=== PATIENT | female | born 1975 | race Caucasian/White ===

== ENCOUNTER 2017-05-21 14:26 | Inpatient (IN) | payer MEDICAID ==
[~2017-05-21] VITALS: Ht 154.9 cm; Wt 63.8 kg
[~2017-05-21 14:26] MED LIST: VIC PO
[2017-05-21 15:21] LABS: BASOPHIL % 0.4 % (0-2); PLATELET COUNT 270 x10^3mcL (130-400); RED CELL DISTRIBUTION WIDTH 13.8 % (11.5-14.5)
[2017-05-21 15:24] LABS: CALCIUM 8.6 mg/dL (8.5-10.1); CARBON DIOXIDE 27.9 mmol/L (21-32); CHLORIDE SERUM 103 mmol/L (98-107); CREATININE SERUM 0.6 mg/dL (0.6-1.0); GFR1 > 60 mL/min; GLUCOSE SERUM 116 mg/dL (74-106); POTASSIUM SERUM 4.1 mmol/L (3.5-5.1); SODIUM SERUM 138 mmol/L (136-145)
[2017-05-21 15:28] LABS: ALBUMIN 3.4 g/dL (3.4-5.0); ALKALINE PHOSPHATASE 78 U/L (46-116); ALT/SGPT 20 U/L (14-59); AMYLASE 91 U/L (25-115); AST/SGOT 12 U/L (15-37); BILIRUBIN TOTAL 0.1 mg/dL (0.20-1.00); LIPASE 146 IU/L (73-393); TOTAL PROTEIN, SERUM 7.3 g/dL (6.4-8.2)
[2017-05-21 20:00] VITALS: BP 112/52
[2017-05-21 20:02] VITALS: Ht 154.9 cm; Wt 63.8 kg
[2017-05-21 20:28] LABS: MAGNESIUM 1.8 mg/dL (1.8-2.4); PHOSPHOROUS 2.6 mg/dL (2.5-4.9)
[2017-05-21 20:39] LABS: T3 TOTAL 1.14 ng/mL
[2017-05-21 20:58] LABS: FREE T4 1.02 ng/dL (0.76-1.46); FREE THYROXINE INDEX 2.9 ug/dL (1.4-4.5); T4(THYROXINE) 8.2 ug/dL (4.7-13.3)
[2017-05-22 05:52] VITALS: BP 97/42
[2017-05-22 07:14] LABS: BASOPHIL % 0.6 % (0-2); PLATELET COUNT 240 x10^3mcL (130-400); RED CELL DISTRIBUTION WIDTH 14.2 % (11.5-14.5)
[2017-05-22 07:19] LABS: CALCIUM 7.9 mg/dL (8.5-10.1); CARBON DIOXIDE 26.7 mmol/L (21-32); CHLORIDE SERUM 106 mmol/L (98-107); CREATININE SERUM 0.6 mg/dL (0.6-1.0); GFR1 > 60 mL/min; GLUCOSE SERUM 88 mg/dL (74-106); HDL CHOLESTEROL 35 mg/dL (40-60); MAGNESIUM 1.8 mg/dL (1.8-2.4); PHOSPHOROUS 2.8 mg/dL (2.5-4.9); POTASSIUM SERUM 3.8 mmol/L (3.5-5.1); SODIUM SERUM 140 mmol/L (136-145); TRIGLYCERIDES 68 mg/dL (<150)
[2017-05-22 07:22] LABS: CHOLESTEROL 125 mg/dL (<200); CHOLESTEROL/HDL RATIO 3.6
[2017-05-22 09:40] VITALS: BP 91/48
[2017-05-22 09:44] LABS: microscopic required? NO
[2017-05-22 11:18] LABS: urine erythrocyte NEGATIVE (NEGATIVE)
[2017-05-22 11:30] LABS: AMPHETAMINE QUAL UR NONE DETECTED (NEG <=1000)
[2017-05-22 12:58] VITALS: BP 90/49
[2017-05-22 17:37] VITALS: BP 103/53
[2017-05-22 22:32] VITALS: BP 116/69
[2017-05-23 06:22] VITALS: BP 92/42
[2017-05-23 06:31] LABS: BASOPHIL % 0.4 % (0-2); PLATELET COUNT 228 x10^3mcL (130-400)
[2017-05-23 06:39] LABS: CALCIUM 8.1 mg/dL (8.5-10.1); CHLORIDE SERUM 106 mmol/L (98-107); CREATININE SERUM 0.6 mg/dL (0.6-1.0); GFR1 > 60 mL/min; GLUCOSE SERUM 83 mg/dL (74-106); POTASSIUM SERUM 4.1 mmol/L (3.5-5.1); SODIUM SERUM 138 mmol/L (136-145)
[2017-05-23 08:00] VITALS: BP 92/55
[2017-05-23 12:20] VITALS: BP 105/58
[2017-05-23 17:21] VITALS: BP 97/53
[2017-05-23 21:04] VITALS: BP 96/54
[2017-05-24 06:02] VITALS: BP 94/50
[2017-05-24 06:09] LABS: BASOPHIL % 0.4 % (0-2); PLATELET COUNT 229 x10^3mcL (130-400); RED CELL DISTRIBUTION WIDTH 14.2 % (11.5-14.5)
[2017-05-24 06:37] LABS: CHLORIDE SERUM 105 mmol/L (98-107); CREATININE SERUM 0.5 mg/dL (0.6-1.0); GFR1 > 60 mL/min; GLUCOSE SERUM 94 mg/dL (74-106); SODIUM SERUM 138 mmol/L (136-145)
[2017-05-24 09:30] VITALS: BP 102/64
[2017-05-24] MEDS ORDERED: TYL325 PO (09:52)
[2017-05-24 15:27] VITALS: BP 102/64
== END 2017-05-24 17:18 | disposition home or self-care (01) | DRG 566 ==
LOC: ED 14:26 → DU 18:46 → MU 05-23 17:38
PROVIDERS: Emergency Medicine; Family Medicine Sports Medicine; ADMIT Student in an Organized Health Care Education/Training Program
DX: O99.89 Other specified diseases and conditions complicating pregnancy, childbirth and the puerperium (principal); E83.51 Hypocalcemia; E83.52 Hypercalcemia; R73.03 Prediabetes; N88.8 Other specified noninflammatory disorders of cervix uteri; D64.9 Anemia, unspecified; Z68.26 Body mass index [BMI] 26.0-26.9, adult; Z3A.01 Less than 8 weeks gestation of pregnancy
CPT/HCPCS: 82962; 83880; 84439; J0692; J7030; Q0092

== ENCOUNTER 2017-06-24 22:25 | Emergency (ER) | payer MEDICAID ==
[~2017-06-24 22:25] MED LIST changes: +TYL325 PO
[2017-06-24 22:31] VITALS: BP 100/63
== END 2017-06-25 00:38 | disposition home or self-care (01) ==
LOC: ED 22:25
DX: O26.891 Other specified pregnancy related conditions, first trimester (principal); Z3A.09 9 weeks gestation of pregnancy; Z88.5 Allergy status to narcotic agent; Z88.8 Allergy status to other drugs, medicaments and biological substances

== ENCOUNTER 2017-11-16 21:34 | Emergency (ER) | payer MEDICAID ==
[~2017-11-16] VITALS: Ht 160 cm; Wt 72.1 kg
[2017-11-16 21:39] VITALS: Ht 160 cm; Wt 72.1 kg
[2017-11-16 23:46] VITALS: BP 110/79
== END 2017-11-16 23:53 | disposition short-term general hospital (02) ==
LOC: ED 21:34
DX: O26.893 Other specified pregnancy related conditions, third trimester (principal); R10.30 Lower abdominal pain, unspecified; Z3A.30 30 weeks gestation of pregnancy; Z88.6 Allergy status to analgesic agent; Z88.5 Allergy status to narcotic agent

== ENCOUNTER 2020-08-31 01:23 | Emergency (ER) | payer MEDICAID ==
[~2020-08-31] VITALS: Ht 154.9 cm; Wt 64.9 kg
[2020-08-31 01:34] VITALS: Ht 154.9 cm; Wt 64.9 kg
[2020-08-31 02:43] LABS: UA SPECIFIC GRAVITY 1.015 (1.005-1.035); microscopic required? YES; urine erythrocyte 1+ (NEGATIVE)
[2020-08-31 04:46] VITALS: BP 104/59
== END 2020-08-31 04:46 | disposition home or self-care (01) ==
LOC: ED 01:23
PROVIDERS: Emergency Medicine
DX: K56.7 Ileus, unspecified (principal); B34.9 Viral infection, unspecified; Z88.6 Allergy status to analgesic agent
CPT/HCPCS: J1885; J2765; Q0162